=== PATIENT | female | born 1990 | race Two or more races ===

== ENCOUNTER 2024-04-02 20:02 | Observation (INO) | payer OTHER, SELFPAY ==
[2024-04-02] VITALS (30 sets, daily range): BP systolic 132–158; BP diastolic 70–108; PULSE 85–100; RESP 18–95; TEMP 36.9; BMI 43.3
--- NOTE | 2024-04-02 | XR_ITS ---
Examination: Complete OB ultrasound greater than 14 weeks Date and time of exam: April 02, 2024 11:20 PM INDICATIONS: Pelvic pain today Findings: Viable intrauterine single fetus with single amniotic sac presentation cephalic spine maternal left Cardiac motion 141 BPM Placenta fundal grade 2 Umbilical cord insertion seen Amniotic fluid index 10 cm spine maternal left Cervix 3.3 cm Ovaries obscured by bowel gas. Composite estimated gestational age based on BPD, head circumference, abdominal circumference, femur length is 33 weeks 6 days Estimated weight 2280 g. Survey of intracranial anatomy, spinal anatomy, abdominal anatomy, four-chamber heart performed with no abnormalities identified. Impression: Viable intrauterine gestation cephalic presentation No placental abruption.
[2024-04-02 21:38] LABS: Collection Type, Urine Clean Catch
[2024-04-02 21:41] LABS: Basophils # (Auto) 0.1 Thou/mm3 (0.0-0.2); Basophils % (Auto) 1 % (0-2.5); Eosinophils % (Auto) 0 % (0-10); Hematocrit 34.9 % (36.0-46.0); Hemoglobin 11.8 g/dL (12.0-16.0); Immature Granulocytes % (Auto) 1 % (0-0); Immature Granulocytes Auto 0.12 Thou/mm3 (0.00-0.00); Lymphocytes # (Auto) 1.8 Thou/mm3 (1.0-4.8); Lymphocytes % (Auto) 15 % (10-50); Mean Corpuscular HGB Conc 33.8 g/dl (31.0-37.0); Mean Corpuscular Hemoglobin 29.6 pg (25.0-35.0); Mean Corpuscular Volume 88 fL (80-100); Monocytes # (Auto) 0.8 Thou/mm3 (0.0-0.8); Monocytes % (Auto) 7 % (0-12); Neutrophils # (Auto) 8.9 Thou/mm3 (1.8-7.7); Neutrophils % (Auto) 76 % (37-80); Nucleated Red Blood Cell % 0 /100 WBC (0); Platelet Count 346 Thou/mm3 (140-440); RDW Standard Deviation 41.8 fL (36.4-46.3); Red Blood Count 3.99 Miln/mm3 (4.00-5.20); White Blood Count 11.7 Thou/mm3 (3.6-11.0)
[2024-04-02 21:46] LABS: Bacteria,Urine 1+; Bilirubin,Urine Negative (Negative); Blood,Urine Negative (Negative); Clarity,Urine Clear (Clear/Hazy); Color,Urine Yellow (Lt Yel-Yel); Glucose, Urine Negative (Negative); Ketones,Urine Negative (Negative); Leukocyte Esterase,Urine Positive (Negative); Nitrite,Urine Negative (Negative); PH,Urine 6.5 (5.0-7.0); Protein,Urine 1+ (Neg - Trace); RBC,Urine 4 /hpf (0-3); Squamous Epithelial Cell,Urine 12 /hpf (0-5); Urobilinogen,Urine Negative mg/dL (0.0-1.0); WBC,Urine 5 /hpf (0-5)
[2024-04-02 22:04] LABS: Alanine Aminotransferase 91 U/L (10-49); Albumin, Serum 4.1 gm/dL (3.5-5.0); Albumin/Globulin Ratio 1.4 (1.2-2.2); Alkaline Phosphatase 260 U/L (46-116); Anion Gap 10 (7-16); Aspartate Amino Transferase 90 U/L (0-34); BUN/Creatinine Ratio 22 Ratio (12-20); Bilirubin,Total 0.3 mg/dL (0.3-1.2); Blood Urea Nitrogen 11 mg/dL (9-23); Calcium 9.3 mg/dL (8.3-10.6); Calcium (Corrected) 9.3 mg/dL (8.5-10.1); Carbon Dioxide 22.3 mMol/L (20.0-31.0); Chloride 105 mMol/L (98-107); Creatinine (Component) 0.5 mg/dL (0.6-1.3); Estimated Creatinine Clearance 229.6 mL/min (>60); Globulin 2.9 gm/dL (2.3-3.5); Glucose 89 mg/dL (74-106); Osmolality,Calculated 272 (275-295); Potassium 3.9 mMol/L (3.4-5.1); Sodium 137 mMol/L (136-145); Uric Acid 5.3 mg/dL (3.1-7.8); eGFR > 60 See Note
[2024-04-03] VITALS (26 sets, daily range): BP systolic 120–158; BP diastolic 68–91; PULSE 86–100; RESP 18–20; TEMP 36.6–36.9; O2SAT 96–97
[2024-04-03] MEDS: BETAMET ACET/BETAMET NA PH (Celestone) 6 MG/ML VIAL 12 MG IM ×2 (00:09→21:30)
--- NOTE | 2024-04-03 01:35 | PRELIM_ITS ---
Obstetric ultrasound. April 02, 2024 at 2320 hours Clinical history: Pelvic pain x 1 day. Findings: There is a gravid uterus with a live fetus in cephalic presentation of mean gestational age 33 weeks and 6 days. cardiac activity is present at a heart rate of 141 beats per minute. The placenta is fundal in location, maturity grade II. There is no evidence of placenta previa or retroplacental hemorrhage. Amniotic fluid index is 10 cm. Estimated weight is 2280 grams+/- 337 grams. The cervical length measures 3.3 cm. The ovaries are not visualized. Impression: Gravid uterus with a single live fetus in cephalic presentation of mean gestational age 33 weeks 6 days. No evidence of placenta previa or retroplacental hemorrhage. Report Electronically Signed By: Santiago Franco 04/03/2024 1:34:50 AM [EST]
--- NOTE | 2024-04-03 05:32 | ESHP_ITS ---
Documentation for date of: 04/03/24 OB Labor/Induct. HPI History of Present Illness History of present illness: 33-year-old 1 para 0 at 35 weeks and 5 days admitted for observation. This is the first encounter with the patient. She has received all her care with a different provider however has not been seen since December. Patient admits of intense itching throughout her body especially her palms and soles. Denies any headache, blurred vision, epigastric pain or shortness of breath. Patient denies any history of high blood pressure during or before this History of Present Dating criteria: LMP confirmed by 1st trimester US Adequate Care: Yes Meds Home Medications and Allergies Allergies Allergy/AdvReac Type Severity Reaction Status Date / Time No Known Allergies Allergy Verified 10/05/22 08:11 OB Exam Physical Exam Vital signs: Temp Pulse Resp BP 98.5 F 90 18 126/76 04/02/24 20:21 04/03/24 04:44 04/02/24 20:19 04/03/24 04:44 Constitutional Constitutional: no acute distress Routine HEENT Exam Head: Present normocephalic and atraumatic Eye: Present EOMI and PERRL ENT: Present mucous membranes moist Routine Neck Exam Neck: Present supple and trachea midline Routine Cardiovascular Exam Cardiovascular: Present RRR Routine Abdominal Exam Abdominal: Present soft and normoactive bowel sounds Detailed Labor and Delivery Exam Dilation (cm): Closed Comments: Category 1 heart tone Routine Extremities Exam Extremities: Present full ROM Routine Skin Exam Skin: Present intact, dry and warm Routine Neurological Exam Neurological: Present alert, oriented X3 and CN II-XII intact Routine Psychiatric Exam Psychiatric: Present normal affect and normal thought process OB Results Labs 04/02/24 21:04 04/02/24 21:04 Labs: Short CBC 04/02/24 Range/Units 21:04 WBC 11.7 H (3.6-11.0) Thou/mm3 Hgb 11.8 L (12.0-16.0) g/dL Hct 34.9 L (36.0-46.0) % Plt Count 346 (140-440) Thou/mm3 BMP 04/02/24 21:04 Sodium 137 Potassium 3.9 Chloride 105 Carbon Dioxide 22.3 BUN 11 Creatinine 0.5 L Glucose 89 Calcium 9.3 Liver Function 04/02/24 Range/Units 21:04 Total Bilirubin 0.3 (0.3-1.2) mg/dL AST 90 H (0-34) U/L ALT 91 H (10-49) U/L Alkaline Phosphatase 260 H (46-116) U/L Albumin 4.1 (3.5-5.0) gm/dL Urine 04/02/24 Range/Units 21:04 Urine Color Yellow (Lt Yel-Yel) Urine Clarity Clear (Clear/Hazy) Urine pH 6.5 (5.0-7.0) Ur Specific [place] 1.030 (1.001-1.035) Urine Protein 1+ A (Neg - Trace) Urine Glucose (UA) Negative (Negative) Impressions Impression: 33-year-old G1, P0 at 35 weeks and 5 days admitted for observation of blood pressure Possible cholestasis of , bile acids pending Gestational hypertension Preeclampsia labs within normal limits excepting LFTs elevated twice(possible secondary to cholestasis) care otherwise normal GTT within normal limits Anatomy within normal limits NIPT normal OB Assessment & Plan Additional Plan Additional Plan Comment: Admitted observation and blood pressure monitoring Repeat labs in 12 hours Steroids for lung maturity
--- NOTE | 2024-04-03 10:15 | PD.ADDPROG ---
Addendum Progress Note Addendum Date of report being addended: 04/03/24 Narrative: The patient is a G1, P0 at 35-6/7 weeks admitted with slightly elevated blood pressures. Patient's liver function tests are elevated and she has been extremely itchy for the last few weeks. Patient was given Celestone yesterday and her second dose is due today. At this point she is resting comfortably she is not in labor. The heart tones are category 1 she is afebrile. The plan will be to feed the patient,check bile acids and consider Urosidiol for cholestasis. We will make sure she gets her second dose of Celestone before she leaves. She will be scheduled for an induction of labor at 37-0/7 weeks.
[2024-04-03 11:37] LABS: Collection Type, Urine Clean Catch
[2024-04-03 11:43] LABS: Basophils % (Auto) 0 % (0-2.5); Eosinophils % (Auto) 0 % (0-10); Hematocrit 33.5 % (36.0-46.0); Hemoglobin 11.3 g/dL (12.0-16.0); Immature Granulocytes % (Auto) 1 % (0-0); Immature Granulocytes Auto 0.13 Thou/mm3 (0.00-0.00); Lymphocytes # (Auto) 1.5 Thou/mm3 (1.0-4.8); Lymphocytes % (Auto) 11 % (10-50); Mean Corpuscular HGB Conc 33.7 g/dl (31.0-37.0); Mean Corpuscular Hemoglobin 29.7 pg (25.0-35.0); Mean Corpuscular Volume 88 fL (80-100); Monocytes # (Auto) 0.6 Thou/mm3 (0.0-0.8); Monocytes % (Auto) 4 % (0-12); Neutrophils # (Auto) 12.1 Thou/mm3 (1.8-7.7); Neutrophils % (Auto) 84 % (37-80); Nucleated Red Blood Cell % 0 /100 WBC (0); Platelet Count 344 Thou/mm3 (140-440); RDW Standard Deviation 42.5 fL (36.4-46.3); Red Blood Count 3.81 Miln/mm3 (4.00-5.20); White Blood Count 14.4 Thou/mm3 (3.6-11.0)
[2024-04-03 12:03] LABS: Alanine Aminotransferase 83 U/L (10-49); Albumin, Serum 3.9 gm/dL (3.5-5.0); Albumin/Globulin Ratio 1.3 (1.2-2.2); Alkaline Phosphatase 249 U/L (46-116); Anion Gap 8 (7-16); Aspartate Amino Transferase 77 U/L (0-34); BUN/Creatinine Ratio 23 Ratio (12-20); Bilirubin,Total 0.4 mg/dL (0.3-1.2); Blood Urea Nitrogen 9 mg/dL (9-23); Calcium 9.3 mg/dL (8.3-10.6); Calcium (Corrected) 9.4 mg/dL (8.5-10.1); Carbon Dioxide 21.8 mMol/L (20.0-31.0); Chloride 105 mMol/L (98-107); Creatinine (Component) 0.4 mg/dL (0.6-1.3); Globulin 2.9 gm/dL (2.3-3.5); Glucose 112 mg/dL (74-106); LDH (Lactate Dehydrogenase) 175 U/L (120-246); Osmolality,Calculated 269 (275-295); Potassium 4.4 mMol/L (3.4-5.1); Sodium 135 mMol/L (136-145); Total Protein 6.8 gm/dL (5.7-8.2); Uric Acid 5.5 mg/dL (3.1-7.8); eGFR > 60 See Note
[2024-04-03 12:05] LABS: Partial Thromboplastin Time 26.5 Seconds (22.0-36.0); Prothrombin Time 10.6 Seconds (9.0-12.2)
[2024-04-03 12:11] LABS: Fibrinogen 833 mg/dL (175-375)
[2024-04-03 12:28] LABS: Bacteria,Urine 1+; Bilirubin,Urine Negative (Negative); Blood,Urine Negative (Negative); Clarity,Urine Clear (Clear/Hazy); Color,Urine Yellow (Lt Yel-Yel); Glucose, Urine Negative (Negative); Ketones,Urine 1+ (Negative); Leukocyte Esterase,Urine Positive (Negative); Nitrite,Urine Negative (Negative); PH,Urine 6.5 (5.0-7.0); Protein,Urine Trace (Neg - Trace); RBC,Urine 1 /hpf (0-3); Specific Gravity,Urine 1.028 (1.001-1.035); Squamous Epithelial Cell,Urine 7 /hpf (0-5); Urobilinogen,Urine Negative mg/dL (0.0-1.0); WBC,Urine 2 /hpf (0-5)
--- NOTE | 2024-04-03 19:59 | PD.LDDS ---
DS: Providers Provider Date of admission: 04/02/24 20:02 Primary care physician: Physician No Primary/Family Admitting Provider: Ulysses Amador MD Attending Provider on Admission: Vivian Panchal MD Attending Provider on DC: Vivian Panchal MD Discharging Provider: Vivian Panchal MD Anticipated date of discharge: 04/03/24 DS: Diagnosis Discharge Diagnosis (1) Intrahepatic cholestasis of in third trimester, antepartum: Status: Acute Assessment & Plan: Follow-up on total bile acids. Return in 4 days for nonstress test. Scheduled for induction of labor at 37 weeks. Prescribed Urosidiol 300mg PO twice daily. (2) 36 weeks gestation of : Status: Acute Assessment & Plan: Plan for induction of labor at 37 weeks due to cholestasis of . Problem List Completed Was Problem List Reviewed/Reconciled?: Yes Summary/Hosp Course Brief History: 33-year-old 1 para 0 at 35 weeks and 5 days admitted for observation. This is the first encounter with the patient. She has received all her care with a different provider however has not been seen since December. Patient admits of intense itching throughout her body especially her palms and soles. Denies any headache, blurred vision, epigastric pain or shortness of breath. Patient denies any history of high blood pressure during or before this Status at Discharge Functional status at discharge: independent ambulation Overall status at discharge: Undelivered Time Spent with Patient Time attestation: Total time spent providing and/or coordinating discharge services: Time spent: Greater than 30 minutes Specific discharge activities: Discussed intrahepatic cholestasis of with the patient and the father of the baby. Answered all questions. Gave information. Coordinated a nonstress test appointment for the patient this Wednesday. Prescribed medications to pharmacy. Scheduled patient for an induction of labor at 37 weeks Exam Vital Signs Temp Pulse Resp BP Pulse Ox 98.1 F 88 20 130/80 96 04/03/24 16:51 04/03/24 16:51 04/03/24 16:51 04/03/24 16:51 04/03/24 07:30 Discharge Plan Plan Patient Disposition: HOME (Self Care) Disposition Comment: Stable. Pt to perform kick counts Patient condition on transfer: Stable Prescriptions/Referrals Prescriptions/Med Rec: New ursodiol 300 mg capsule 300 mg PO BID Qty: 60 0RF Referrals: No Primary/Family,Physician [Primary Care Provider] - Patient/Caregiver Discharge Instructions Discharge Activity: resume usual activities Other Discharge Activity Instructions:: Take benadryl for itching and urosidiol Education Materials: Kick Counts, Labor Induction, Antepartum Discharge Print Language: Ukrainian Activity Restrictions/Additional Instructions: increase fluids. pick pack worker medication from pharmacy and take for itching. return on wednesday for NST/baby monitoring and to review cholestasis lab results. scheduled for induction of labor on 04/09/24. return as instructed. Stand Alone Forms: Marcela Award Info., Patient Portal Info Letter, Work/Release Restrictions Discharge Order Discharge Orders: Discharge (Routine); Ordered 04/03/24 Ordered By: Vivian Panchal Planned Discharge Date 04/03/24
[2024-04-08 15:34] LABS: Chenodeoxycholic Acid* 12.1 umol/L (< OR = 3.9); Cholic Acid* 27.6 umol/L (< OR = 2.8); Deoxycholic Acid* 3.6 umol/L (< OR = 2.3)
[2024-04-11 06:59] LABS: Total Bile Acids 43.3 umol/L (< OR = 8.3)
== END 2024-04-03 22:00 | disposition home or self-care (01) ==
PROVIDERS: Admitting Provider Student in an Organized Health Care Education/Training Program; Visit Provider Obstetrics & Gynecology
DX: O26.643 Intrahepatic cholestasis of pregnancy, third trimester (principal); K83.1 Obstruction of bile duct; Z3A.36 36 weeks gestation of pregnancy
CPT/HCPCS: 36415; 59025; 59899; 76805; 80053; 81001; 83615; 83789; 84550; 85025; 85384; 85610; 85730; 96372; J0702

== ENCOUNTER 2024-04-07 10:45 | Outpatient (CLI) | payer OTHER, SELFPAY ==
[2024-04-07] VITALS (16 sets, daily range): BP systolic 117–142; BP diastolic 82–97; PULSE 80–95; RESP 18–99; TEMP 36.7; BMI 58.9
[2024-04-07 12:20] LABS: Collection Type, Urine Clean Catch
[2024-04-07 12:25] LABS: Basophils # (Auto) 0.1 Thou/mm3 (0.0-0.2); Basophils % (Auto) 1 % (0-2.5); Eosinophils # (Auto) 0.1 Thou/mm3 (0.0-0.5); Eosinophils % (Auto) 0 % (0-10); Hematocrit 33.9 % (36.0-46.0); Hemoglobin 11.7 g/dL (12.0-16.0); Immature Granulocytes % (Auto) 2 % (0-0); Lymphocytes # (Auto) 1.8 Thou/mm3 (1.0-4.8); Lymphocytes % (Auto) 14 % (10-50); Mean Corpuscular HGB Conc 34.5 g/dl (31.0-37.0); Mean Corpuscular Hemoglobin 29.6 pg (25.0-35.0); Mean Corpuscular Volume 86 fL (80-100); Monocytes # (Auto) 0.9 Thou/mm3 (0.0-0.8); Monocytes % (Auto) 7 % (0-12); Neutrophils # (Auto) 9.8 Thou/mm3 (1.8-7.7); Neutrophils % (Auto) 77 % (37-80); Nucleated Red Blood Cell % 0 /100 WBC (0); Platelet Count 347 Thou/mm3 (140-440); RDW Standard Deviation 41.5 fL (36.4-46.3); Red Blood Count 3.95 Miln/mm3 (4.00-5.20); White Blood Count 12.7 Thou/mm3 (3.6-11.0)
[2024-04-07 12:27] LABS: Bacteria,Urine 1+; Bilirubin,Urine Negative (Negative); Blood,Urine Negative (Negative); Color,Urine Yellow (Lt Yel-Yel); Glucose, Urine Negative (Negative); Hyaline Casts,Urine < 1 /hpf (0-1); Ketones,Urine Negative (Negative); Leukocyte Esterase,Urine Positive (Negative); Nitrite,Urine Negative (Negative); Protein,Urine Trace (Neg - Trace); RBC,Urine 7 /hpf (0-3); Specific Gravity,Urine 1.022 (1.001-1.035); Squamous Epithelial Cell,Urine 19 /hpf (0-5); Urobilinogen,Urine Negative mg/dL (0.0-1.0); WBC,Urine 12 /hpf (0-5)
[2024-04-07 12:47] LABS: Clarity,Urine Hazy (Clear/Hazy)
[2024-04-07 12:58] LABS: Alanine Aminotransferase 102 U/L (10-49); Albumin/Globulin Ratio 1.4 (1.2-2.2); Alkaline Phosphatase 251 U/L (46-116); Anion Gap 8 (7-16); Aspartate Amino Transferase 74 U/L (0-34); BUN/Creatinine Ratio 16 Ratio (12-20); Bilirubin,Total 0.4 mg/dL (0.3-1.2); Blood Urea Nitrogen 8 mg/dL (9-23); Calcium 9.6 mg/dL (8.3-10.6); Calcium (Corrected) 9.6 mg/dL (8.5-10.1); Chloride 105 mMol/L (98-107); Creatinine (Component) 0.5 mg/dL (0.6-1.3); Globulin 2.9 gm/dL (2.3-3.5); Glucose 84 mg/dL (74-106); Osmolality,Calculated 271 (275-295); Potassium 4.2 mMol/L (3.4-5.1); Sodium 137 mMol/L (136-145); Total Protein 6.9 gm/dL (5.7-8.2); Uric Acid 5.1 mg/dL (3.1-7.8); eGFR > 60 See Note
[2024-04-07 13:06] LABS: INR 0.9 (0.9-1.3); Partial Thromboplastin Time 26.5 Seconds (22.0-36.0); Prothrombin Time 10.3 Seconds (9.0-12.2)
[2024-04-07 14:39] LABS: Fibrinogen 833 mg/dL (175-375)
== END 2024-04-07 13:45 | disposition home or self-care (01) ==
LOC: S4S1 10:48 → S4SX 10:50
PROVIDERS: Referring Provider Obstetrics & Gynecology; Visit Provider Obstetrics & Gynecology
DX: Z34.03 Encounter for supervision of normal first pregnancy, third trimester (principal); Z36.9 Encounter for antenatal screening, unspecified; Z3A.36 36 weeks gestation of pregnancy
CPT/HCPCS: 36415; 59025; 80053; 81001; 84550; 85025; 85384; 85610; 85730